=== PATIENT | male | born 2005 | race Hispanic/Latino ===

== ENCOUNTER 2023-01-15 21:13 | Emergency (ER) | payer OTHER ==
[~2023-01-15] VITALS: Ht 188 cm; Wt 107.0 kg
[2023-01-15 21:36] VITALS: BP 122/67
== END 2023-01-16 00:29 | disposition left against medical advice (07) ==
LOC: EDH 21:13
DX: R10.9 Unspecified abdominal pain (principal); Z53.21 Procedure and treatment not carried out due to patient leaving prior to being seen by health care provider
CPT/HCPCS: 99281

== ENCOUNTER 2025-08-04 21:18 | Emergency (ER) | payer SELFPAY ==
[~2025-08-04] VITALS: Ht 193 cm; Wt 124.7 kg
[2025-08-04] MEDS ORDERED: AMOX1TAB16 PO (21:29)
[2025-08-04] MEDS ORDERED: IBUP-2077 PO (21:29)
--- NOTE | 2025-08-04 21:30 | ERN ---
ED Note History of Present Illness Stated Complaint: DOG BITE Chief Complaint: Animal Bite Time Seen by MD: 21:20 Dictation: PATIENT IS A 19-YEAR-OLD MALE HERE WITH A DOG BITE WITH PUNCTURE WOUNDS TO THE RIGHT HAND1 HOUR PRIOR TO ARRIVAL. HE STATES THE DOG BELONGS TO HIS BROTHER WHO IS HERE VISITING WITH HIM IN THE EMERGENCY ROOM. THE BROTHER STATES THE DOG IS VACCINATED. THERE WAS NO ACTIVE BLEEDING, PATIENT'S LAST TETANUS SHOT IS UNKNOWN. PATIENT STATES HE HAS NO PRIMARY CARE DOCTOR Allergies: Coded Allergies: No Known Drug Allergies (Unverified Allergy, Unknown, 01/15/23) Past Medical History Past Medical History: No Pertinent History Surgical History: None RN Note Reviewed/Agreed w/PFSH: Yes Review of System Dictation CONSTITUTIONAL: NEGATIVE EXCEPT FOR HPI HEAD/FACE: NEGATIVE EXCEPT FOR HPI EENT: NEGATIVE EXCEPT FOR HPI RESPIRATORY: NEGATIVE EXCEPT FOR HPI GASTROINTESTINAL/ABDOMINAL: NEGATIVE EXCEPT FOR HPI GENITOURINARY: NEGATIVE EXCEPT FOR HPI MUSCULOSKELETAL: NEGATIVE EXCEPT FOR HPI DOG BITE WITH PUNCTURE WOUNDS RIGHT HAND INTEGUMENTARY: NEGATIVE EXCEPT FOR HPI NEUROLOGICAL/PSYCH: NEGATIVE EXCEPT FOR HPI HEMATOLOGIC/LYMPHATIC: NEGATIVE EXCEPT FOR HPI ALL SYSTEMS NEGATIVE, EXCEPT NOTED ABOVE. 13 POINT REVIEW OF SYSTEMS ASSESSED AND ALL NEGATIVE EXCEPT FOR ABOVE. Initial Vital Sign VS Vital Signs Date Time Temp Pulse Resp B/P (MAP) Pulse Ox O2 Delivery O2 Flow Rate FiO2 08/04/25 21:20 97.7 80 18 140/84 100 Room Air Physical Exam Dictation VITAL SIGNS REVIEWED GENERAL APPEARANCE: ALERT, ORIENTED X 3, MILD ACUTE DISTRESS, WELL DEVELOPED, NO URISHED. HEAD AND FACE: NON-TRAUMATIC. EYES: PERRL, PINK CONJUNCTIVAS, EYELID NO TRAUMA, ANTERIOR CHAMBER WITH ARCUS SENILIS. EARS: PINNAS INTACT AND NO SIGNS OF TRAUMA OR ERYTHEMA EAR CANALS CLEAR AND NO DISCHARGE TM NO ERYTHEMA NOSE: NO DISCHARGE, NO BLEEDING. OROPHARYNX: MOUTH NORMAL, TONGUE PINK, PHARYNX CLEAR,NO ERYTHEMA, TONSILS NO EXUDATES, NO ABSCESSES NOTED, MUCOUS M EMBRANE MOIST NECK: SUPPLE, NON-TENDER, NO THYROMEGALY, NO MASSES, NO JVD, NO BRUITS BREAST:DEFERRED CHEST:NO TENDERNESS, NO CREPITUS, NO PARADOXICAL MOVEMENT, NO RETRACTIONS LUNGS:CLEAR, WELL-VENTILATED, SYMMETRIC, NO RALES, NO WHEEZING, NO RHONCHI, NO STRIDOR, GOOD BREATH SOUNDS BILATERALLY HEART: REGULAR RATE, REGULAR RHYTHM, NO MURMUR, NO GALLOPS VASCULAR: NO PERIPHERAL EDEMA, ABDOMEN: SOFT, POSITIVE BOWEL SOUNDS, NONDISTENDED, NO GUARDING, NONTENDER, NO REBOUND, NO MASSES NO HEPATOMEGALY, NO SPLENOMEGALY, NO CHAHAL'S SIGN, NO HERNIAS. RECTAL: DEFERRED GENITAL: DEFERRED NEUROLOGICAL: NORMAL SPEECH, MO LYMPHATIC: DEFERRED Results (Laboratory/Radiology) Labs Reviewed?: Yes ED Course ED Course Orders Procedure Category Date Status Time Amox/Clav 875/125mg PHA 08/04/25 Verified Tab (Augmentin 875-1 21:30 Neomy PHA 08/04/25 Verified Sulf/Bacitra/Polymyxin 21:30 Tetanus,Diphtheria PHA 08/04/25 Verified Tox [Adult] (Diphther 21:30 Ibuprofen 800 Mg Tab PHA 08/04/25 Verified (Motrin) 21:30 *Nursing CPOE 08/04/25 Verified Communication: 21:24 Vital Signs Date Time Temp Pulse Resp B/P (MAP) Pulse Ox O2 Delivery O2 Flow Rate FiO2 08/04/25 21:20 97.7 80 18 140/84 100 Room Air 2128/MEDICAL DECISION-MAKING WE WILL BE REPORTING DOG BITE TO LAW ENFORCEMENT TETANUS UPDATE AUGMENTIN 875 PROPHYLAXIS WOUND CARE AND REFERRAL TO PRIMARY CARE DOCTOR Medical Decision Making MDM MEDICAL DECISION-MAKING BASED ON HPI THE DOG BELONGS TO THE PATIENT'S BROTHER AND CAN BE QUARANTINE TETANUS SHOT IS UPDATED [id number] GIVEN FOR PROPHYLAXIS LAW ENFORCEMENT WE WILL BE NOTIFIED PATIENT GIVEN INSTRUCTIONS TO FOLLOW UP WITH PRIMARY CARE DOCTOR IN THE NEXT 2-3 DAYS AND GIVEN A LIST OF DOCTORS ON STAFF DX & DISP Disposition: Discharge Departure Impression: Primary Impression: Dog bite of right hand Condition: Stable Scripts Ibuprofen (Ibuprofen 800 mg Tab) 800 Mg Tab 800 MG PO Q8H PRN for fever or pain, #30 TAB 0 Refills Prov: SHAHEED BIRD OCCUPATIONAL THERAPIST 08/04/25 Amoxicillin/Potassium Clav (Amox Tr-K Clv 875-125 mg Tab) 875 Mg-125 Mg Tablet 1 EACH PO BID for 7 Days, #14 TAB 0 Refills Prov: SHAHEED BIRD OCCUPATIONAL THERAPIST 08/04/25 Additional Instructions: FOLLOW-UP WITH PRIMARY CARE PROVIDER IN 1 TO 2 DAYS. TAKE MEDICATIONS DIRECTED HERE IN THE EMERGENCY ROOM. OKAY TO CONTINUE HOME MEDICATIONS UNLESS OTHERWISE DISCUSSED DURING YOUR VISIT IN THE EMERGENCY ROOM TODAY. RETURN TO YOUR NEAREST EMERGENCY ROOM IF SYMPTOMS WORSEN OR IF THERE IS NO IMPROVEMENT. CALL 911 IF YOU NEED IMMEDIATE ASSISTANCE. TAKE TYLENOL OR MOTRIN [id number] NEEDED AND IF NO CONTRAINDICATIONS ARE PRESENT. INCREASE ORAL HYDRATION. A WOUND CULTURE OR URINE CULTURE WAS ORDERED HERE IN THE EMERGENCY ROOM DEPARTMENT PLEASE FOLLOW-UP WITH PRIMARY CARE PROVIDER AND ADVISE THEM TO GET REPEAT PORTS FROM OUR FACILITY. IF YOU HAD ANY DASHA WRAP/SPLINTS THAT WERE APPLIED HERE, PLEASE DO NOT REMOVE THEM UNTIL YOU SEE YOUR PRIMARY CARE OR SPECIALTY. APPLY TRIPLE ANTIBIOTIC OINTMENT/[id number] TIMES A DAY FOR FIVE DAYS TO PUNCTURE WOUNDS TO RIGHT HAND. TAKE ANTIBIOTICS DIRECTED UNTIL GONE. COMPLETE POLICE REPORT ON DOG BITE FOLLOW UP WITH ONE OF THE DOCTORS ON THE LIST PROVIDED YOU IN THE NEXT 2-3 DAYS FOR MANAGEMENT OF YOUR DOG BITE Referrals: NONE (PCP) Time of Disposition: 21:28 I have reviewed the case, and I agree with, Diagnosis and Plan SHAHEED BIRD Aug 04, 2025 21:30
--- NOTE | 2025-08-04 21:50 | NUR ---
WOUND CARE DONE ORDERED
[2025-08-04] MEDS: AMOX/CLAV 875/125MG TAB PO ONE (21:52)
[2025-08-04] MEDS: NEOMY SULF/BACITRA/POLYMYXIN B 1 EACH PACKET TP ONE (21:53)
[2025-08-04] MEDS: BACITRACIN 1 EACH PACKET TP ONE (21:53)
--- NOTE | 2025-08-04 21:53 | NUR ---
PATIENT REFUSED FOR LAW ENFORCEMENT TO BE NOTIFIED OF DOGBITE, STATED DOG BELONGS TO HIS FRIEND
[2025-08-04 21:54] VITALS: BP 126/75; PULSE 72; RESP 18; TEMP 97.8; O2SAT 98
== END 2025-08-04 22:05 | disposition home or self-care (01) ==
LOC: EDH 21:18
DX: S61.451A Open bite of right hand, initial encounter (principal); W54.0XXA Bitten by dog, initial encounter; Y93.89 Activity, other specified; Y92.89 Other specified places as the place of occurrence of the external cause; Y99.8 Other external cause status
CPT/HCPCS: 90471; 90714; 99284